=== PATIENT | female | born 1985 | race Caucasian/White ===

== ENCOUNTER 2021-08-10 05:49 | Inpatient (IN) ==
--- NOTE | 2021-08-04 16:07 | Anesthesiology Consultation ---
Date of Service August 04, 2021 Assessment & Plan (1) Encounter for pre-operative examination: Chart Review Chart Review: data entry coordinator initiated Per nursing assessment 08/04/2021, patient admits to local travel only. No known Covid infection in the past 90 days. Patient is vaccinated for Covid. No known Covid positive contacts or Covid related symptoms. Preop Covid testing scheduled 08/08/21= will await results History Surgery Operation Date: 08/10/21 09:05 Proposed Procedures p Primary Section, Possible Bilateral Salpingectomy - Nohelia Botello MD Height/Weight Height: 5 ft 6 in Weight: 88.451 kg Allergies Allergy/AdvReac Type Severity Reaction Status Date / Time lactose Allergy Mild Gastrointestinal Verified 08/04/21 14:59 Upset Medications Home Medications Medication Instructions Recorded Confirmed Last Taken fluoxetine 20 mg tablet 20 mg PO QAM 07/24/21 08/04/21 07/24/21 08:00 lamotrigine 50 mg tablet,extended 50 mg PO HS 07/24/21 08/04/21 07/24/21 18:00 release 24 hr liothyronine 25 mcg tablet 25 mcg PO QAM 07/24/21 08/04/21 07/24/21 08:00 magnesium citrate 100 mg capsule 250 mg PO QDL 07/24/21 08/04/21 07/24/21 12:00 prenat.vits,jose enrique,kqt-etbj-[id number] 1 tab PO QDL 07/24/21 08/04/21 07/24/21 12:00 calcium carbonate 600 mg (1,500 2 tab PO QDL 08/04/21 08/04/21 Unknown mg)-vitamin D3 400 unit tablet (Calcium 600 + D(3)) ferrous sulfate 159 mg 159 mg PO HS 08/04/21 08/04/21 Unknown capsule,extended release hydroxyzine HCl 50 mg tablet 50 mg PO HS 08/04/21 08/04/21 Unknown lorazepam 0.5 mg tablet 0.5 mg PO HS PRN 08/04/21 08/04/21 Unknown omega-3 fatty acids 1,000 mg PO QDL 08/04/21 08/04/21 Unknown Past Medical History Medical History Anemia Bipolar 1 disorder CHELLE (generalized anxiety disorder) Hypothyroidism (spontaneous vaginal delivery) 2019 Past Family History Family History Other No family history of adverse response to anesthesia Past Surgical History Surgical History History of wisdom tooth extraction Social History Smoking Status: Former smoker Do You Dip or Chew Tobacco: No Smoking End Date: quit 7yrs ago Hx Alcohol Use: No (prior to drank a few times a week, none during ) Hx Substance Use: No substance use type: does not use
--- NOTE | 2021-08-09 12:11 | History and Physical Report ---
DATE OF ADMISSION: 08/10/2021 She is to be admitted on 08/10/2021 for primary section. HISTORY OF PRESENT ILLNESS: This is a 36-year-old G2, P1, at 39 weeks and 1 day, due date is 021. The patient is scheduled for section on 08/10/2021 for history of shoulder dystocia. The patient had a shoulder dystocia in last with infant's weight of 9.1 pounds. The patien t had a scan last week and estimated weight was 8 pounds and 13 ounces. Decision has been made therefore to schedule the patient for section. Risks and benefits of section vers us vaginal delivery and the potential for another shoulder dystocia were discussed with the patient. The patient has agreed to undergo section. She also wishes to have permanent sterilization . course has been unremarkable. PAST MEDICAL HISTORY: The patient has history of anxiety, bipolar disorder and hypothyroidism in pre gnancy. PAST SURGICAL HISTORY: The patient has had a history of dental surgery in the past. SOCIAL HISTORY: Denies tobacco, drug or alcohol use. FAMILY HISTORY: Noncontributory. PHYSICAL EXAMINATION: GENERAL: Well-developed, well-nourished white female in no acute distress. VITAL SIGNS: Today in the office, blood pressure is 108/72. HEART: S1 and S2, regular rhythm and rate. LUNGS: Clear to auscultation bilaterally. ABDOMEN: Gravid. heart rate is 130s. PELVIC: Deferred. EXTREMITIES: No cyanosis, clubbing, or significant edema. ASSESSMENT AND PLAN: A 36-year-old 2, para 1, history of shoulder dystocia. Estimated weight last week was 8 pounds and 13 ounces. The patient after counseling has decided to undergo pr imary section to avoid another potential shoulder dystocia. Risks of surgery were discussed with the patient including infection, bleeding, damage to adjacent structures. Consent is signed an d patient will proceed with section. The patient also wishes to have permanent sterilizatio n; this is included in the consent. Job ID: [id number]
[2021-08-10] MEDS ORDERED: LACTATED RINGER'S 1,000 ML IV SCH ×2 (06:15→09:15)
[2021-08-10] MEDS ORDERED: OXYTOCIN 10 UNITS/ML VIAL ONE (07:05)
[2021-08-10] MEDS ORDERED: MoRPHine SULFATE PF 1 MG/ML 10 ML AMP/VIAL ONE (07:05)
[2021-08-10] MEDS ORDERED: ONDANSETRON INJ 2 MG/ML 2 ML VIAL ONE (07:05)
[2021-08-10] MEDS ORDERED: fentaNYL citrate 100 MCG/2 ML VIAL ONE (07:05)
[2021-08-10 07:29] LABS: Basophils # (auto) 0.02 K/uL (0-0.2); Basophils % (auto) 0.2 %; Eosinophils # (auto) 0.14 K/uL (0-0.5); Eosinophils % (auto) 1.3 %; Hematocrit (blood only) 36.5 % (37-47); Hemoglobin 12.6 g/dL (12.0-16.0); Immature Granulocytes # (auto) 0.04 K/uL (0.00-0.02); Immature Granulocytes % (auto) 0.4 %; Lymphocytes % (auto) 27.6 %; Mean Corpuscular Hemoglobin 33.6 pg (25-34); Mean Corpuscular Hgb Conc 34.5 g/dL (32-36); Mean Corpuscular Volume 97.3 fL (80-100); Mean Platelet Volume 10.1 fL (7.4-10.4); Monocytes % (auto) 7.6 %; Neutrophils # (auto) 6.59 K/uL (1.4-6.5); Neutrophils % (auto) 62.9 %; Platelet Count 282 K/uL (130-400); RDW Coefficient of Variation 12.6 % (11.5-14.5); Red Blood Count 3.75 M/uL (4.2-5.4); White Blood Count 10.49 K/uL (4.8-10.8)
[2021-08-10] MEDS ORDERED: LORazepam 0.5 MG TAB PO PRN (07:39)
[2021-08-10] MEDS ORDERED: CITRIC ACID/SODIUM CITRATE 15 ML UDC PO ONE (08:05)
[2021-08-10] MEDS ORDERED: ePHEDrine sulfate 50 MG/ML AMP IV PRN (08:48)
[2021-08-10] MEDS ORDERED: ONDANSETRON INJ 2 MG/ML 2 ML VIAL IV PRN ×2 (08:48→09:14)
[2021-08-10] MEDS ORDERED: MoRPHine SULFATE PF 1 MG/ML 10 ML AMP/VIAL INT SPINAL ONE (08:48)
[2021-08-10] MEDS ORDERED: HYDROmorphone INJ 0.5 MG/0.5 ML SYR IV PRN (08:48)
[2021-08-10] MEDS ORDERED: NALOXONE HCL 0.08 MG in SYRINGE 1.8 ML IV PRN (08:48)
[2021-08-10] MEDS ORDERED: NALOXONE HCL 0.4 MG/1 ML VIAL/CARP IV PRN (08:48)
[2021-08-10] MEDS ORDERED: ACETAMINOPHEN 1000 MG/100 ML IV IV PRN (08:48)
[2021-08-10] MEDS ORDERED: NALBUPHINE HCL INJ 10 MG/ML AMP IV PRN (08:48)
[2021-08-10] MEDS ORDERED: NALOXONE HCL 1 MG in SODIUM CHLORIDE 0.9% 1000ML 1,000 ML IV PRN (08:48)
[2021-08-10] MEDS ORDERED: LACTATED RINGER'S 500 ML IV PRN (08:48)
[2021-08-10] MEDS ORDERED: PHENYLEPHRINE 100MCG/ML 5ML SYR ONE (08:52)
[2021-08-10] MEDS ORDERED: PROMETHAZINE HCL INJ 25 MG/ML 1 ML VIAL ONE (08:53)
[2021-08-10] MEDS ORDERED: NO NARCOTICS OR SEDATIVES SCH (09:00)
[2021-08-10] MEDS ORDERED: SODIUM CHLORIDE 0.9% 1000ML 1,000 ML IV SCH (09:00)
[2021-08-10] MEDS ORDERED: diphenhydrAMINE 50 MG/ML VIAL ONE (09:03)
[2021-08-10] MEDS ORDERED: METHYLERGONOVINE MALEATE 0.2 MG/ML AMP IM STA (09:14)
[2021-08-10] MEDS ORDERED: BENZOCAINE 20% AER SPR 82.5 GM CAN EXT PRN (09:14)
[2021-08-10] MEDS ORDERED: HYDROCORTISONE ACETATE 25 MG SUPP PR PRN (09:14)
[2021-08-10] MEDS ORDERED: MAGNESIUM HYDROXIDE SUSP 30 ML UDC PO PRN (09:14)
[2021-08-10] MEDS ORDERED: SENNA 8.6 MG TAB PO PRN (09:14)
[2021-08-10] MEDS ORDERED: SUPERCREAM 0.870% 15 GM JAR EXT PRN (09:14)
[2021-08-10] MEDS ORDERED: MEASLES, MUMPS & RUBELLA VIRUS VIAL SQ ONE (09:14)
[2021-08-10] MEDS ORDERED: DIPHTHERIA/TETANUS/PERTUSSIS 0.5 ML SYR/VIAL IM ONE (09:14)
--- NOTE | 2021-08-10 09:14 | Post Operative Brief Note ---
Immediate Post Op Note v1 Date of Surgery August 10, 2021 Pre & Post Diagnosis Operation Date: 08/10/21 07:30 Pre-Op Diagnosis: Primary section for history of previous shoulder dystocia Post-Op Diagnosis: same I identified the patient and participated in the time-out.: Yes Procedure Operation Date: 08/10/21 07:30 Actual Procedures p Primary Section, Bilateral Salpingectomy living female child at 0833(Bilateral) - Nohelia Avalos MD Surgeon Nohelia Avalos MD Beer Maker Dr. Dozier Estimated Blood Loss 650 Findings Consistent with Post-Op Diagnosis Drains Gurrola Catheter (gurrola inserted after spinal without difficulty. Gurrola draining clear yellow urine during procedure and anesthesia to monitor output intraoperatively.) Anesthesia Type Spinal Complications none
[2021-08-10] MEDS: FLUoxetine HCL 20 MG CAP PO SCH (10:07)
--- NOTE | 2021-08-10 10:23 | Operative Report (OR) ---
DATE OF SURGERY: 08/10/2021 PREOPERATIVE DIAGNOSES: The patient is a 36-year-old 2, para 1-0-0-1, at 39.2 weeks of gestation with a history of prior shoulder dystocia and suspected macrosomia. Desire for permanent sterilization. POSTOPERATIVE DIAGNOSES: The patient is a 36-year-old 2, para 1-0-0-1, at 39.2 weeks of gestation with a history of prior shoulder dystocia and suspected macrosomia. Desire for permanent sterilization. PROCEDURE: Primary low transverse with Pfannenstiel skin incision and bilateral tubal ligation with [place] method. SURGEON: Nohelia Avalos MD. STRAW HAT BRUSHER: Rusty Dozier MD. ESTIMATED BLOOD LOSS: 650 mL. DRAINS: Brizuela catheter drained 200 mL of clear urine. ANESTHESIA: Spinal. ANESTHESIOLOGIST: Dr. Pacheco. COMPLICATIONS: None. FINDINGS: Baby was a viable female infant, delivered at 08:33 am, Apgars were 9/9, weight was 10 pounds and 4 ounces, 4650 gr. Maternal findings: Normal uterus, fallopian tubes, and ovaries. DESCRIPTION OF PROCEDURE: The patient was taken to the operating room where spinal anesthesia was given without difficulty. The patient was placed in the dorsal supine position with a leftward tilt. She was prepared and draped in the usual sterile fashion. A Pfannenstiel skin incision was made and carried through to the underlying layer of fascia. Fascia was incised in the midline and incision was extended laterally with the help of Mccarthy scissors. Upper aspect of the fascial incision was grasped with 2 Keny clamps, elevated, and underlying rectus muscles were dissected off sharply with Mccarthy scissors and bluntly with fingers. Lower aspect of the fascial incision was then grasped with 2 Keny clamps, elevated, and underlying rectus muscles were dissected off sharply with Mccarthy scissors. Rectus muscles were in the midline. Peritoneum was entered bluntly with fingers. Peritoneal incision was extended superiorly and inferiorly with good visualization of the bladder. Bladder blade was inserted. Vesicouterine peritoneum was identified, grasped with pickups, and entered sharply with Metzenbaum scissors. Bladder flap was created digitally and the bladder blade was reinserted. Lower uterine segment was incised in a transverse fashion. Incision was extended laterally with the help of bandage scissors. Membranes were ruptured. Clear fluid was obtained. Baby's head was delivered without difficulty. Shoulders were delivered with minimal traction. Mouth and nose were suctioned. Cord was clamped x2 and cut. Baby was handed off to the waiting pediatric team. Cord blood was obtained. Placenta was delivered manually as intact and complete. Uterus was exteriorized and cleared of all clots and debris. Fundus was firm. Uterine incision was repaired with 0 Vicryl in a running locked fashion. Second imbricating layer was placed with another 0 Vicryl in a running locked fashion. Excellent hemostasis was achieved. Cul-de-sac was irrigated with warm normal saline and suctioned and then as the patient requested, we proceeded with tubal ligation. Right fallopian tube was grasped with 2 [place] clamps from the avascular site. Mesosalpinx was entered with a 2-0 plain catgut. The tube was tied around the clamps and another tie was placed under the first tie and then about 3 cm length of tube was incised above the tie and sent for pathology. It was hemostatic. Left fallopian tube was grasped with 2 Scarlet clamps from the avascular site. Mesosalpinx was entered with 2-0 plain catgut and then the tube was tied around the clamps, another tie was placed under the first tie and then about 3 cm length of tube was excised above the tie and it was hemostatic. Uterine incision was checked to be hemostatic again. Uterus was returned to the abdomen. Pelvis was irrigated with warm normal saline and suctioned. There was oozing on the right middle of the incision. It was controlled with [id number] stitches x2 with 0 Vicryl. Pelvis was irrigated again and the incision was checked to be hemostatic. Parietal peritoneum was reapproximated with 3-0 Vicryl in a running fashion and the rectus muscles were reapproximated with the same suture in a running fashion, and the rectus muscles and under the fascia were checked to be hemostatic. Rectus fascia was reapproximated with 0 Vicryl starting from both corners, meeting in the midline and then subcuticular fat tissue was brought together with 3-0 Vicryl. Skin was closed with 4-0 Monocryl in a subcuticular fashion. The patient tolerated the procedure well. Sponge, lap, needle count was correct x3. No complications happened. I was present and Dr. Dozier was present during the whole procedure. The patient was taken to labor and delivery in stable condition. She was given cefazolin before surgery. My pier master assistant was needed for retration and visualization and assistance during delivery and completing of surgery. Job ID: [id number] MTDD
[2021-08-10] MEDS ORDERED: Nursing to Pharmacy Communication SCH (10:30)
[2021-08-10] MEDS: KETOROLAC 30 MG/ML VIAL IV PRN ×2 (11:16→17:06)
[2021-08-10] MEDS: OXYTOCIN 20 UNITS in LACTATED RINGER'S 1,000 ML IV SCH ×2 (11:43→19:48)
[2021-08-10] MEDS: PRENATAL VITAMIN 1 TAB PO SCH ×2 (13:36→13:54)
[2021-08-10] MEDS: CALCIUM 600MG + VIT D 400 IU TAB PO SCH ×2 (13:36→17:17)
[2021-08-10] MEDS: SIMETHICONE 80 MG CHEW PO SCH ×3 (13:40→20:44)
[2021-08-10] MEDS: diphenhydrAMINE 50 MG/ML VIAL IV PRN ×2 (15:56→22:06)
--- NOTE | 2021-08-10 16:57 | Anesthesiology Progress Note ---
Date of Service August 10, 2021 Anesthesia Post Procedure Vital Signs Vital Signs: Temp Pulse Resp BP BP Pulse Ox Pulse Ox 08/10/21 16:05 16 100 08/10/21 15:15 16 100 08/10/21 15:05 36.6 C 16 106/66 100 100 08/10/21 14:01 16 99 08/10/21 13:11 16 97 08/10/21 12:00 36.7 C 16 120/70 98 98 08/10/21 11:30 18 99 08/10/21 11:25 69 108/54 L 08/10/21 11:22 76 96 08/10/21 11:17 76 98 08/10/21 11:12 77 98 08/10/21 11:07 72 116/58 L 99 08/10/21 11:02 68 99 08/10/21 10:57 76 98 08/10/21 10:52 77 99 08/10/21 10:47 79 99 08/10/21 10:42 75 97 08/10/21 10:37 74 100 08/10/21 10:36 73 102/58 L 08/10/21 10:32 77 100 08/10/21 10:30 18 99 08/10/21 10:28 75 99/55 L 08/10/21 10:27 73 98 08/10/21 10:22 80 98 08/10/21 10:17 78 99 08/10/21 10:14 68 104/50 L 08/10/21 10:12 85 99 08/10/21 10:07 81 98 08/10/21 10:02 80 100 08/10/21 09:58 81 111/54 L 08/10/21 09:57 75 99 08/10/21 09:52 88 100 08/10/21 09:47 76 99 08/10/21 09:42 88 112/58 L 99 08/10/21 09:37 76 107/56 L 98 08/10/21 09:32 89 108/55 L 98 08/10/21 09:30 18 98 08/10/21 09:27 88 117/59 L 99 08/10/21 07:40 92 H 97 08/10/21 07:35 88 97 08/10/21 07:30 86 98 08/10/21 07:25 93 H 98 08/10/21 07:20 101 H 98 08/10/21 07:15 36.5 C 91 H 20 97 08/10/21 07:10 91 H 97 08/10/21 07:06 99 H 114/74 08/10/21 07:05 92 H 97 08/10/21 07:02 84 92 08/10/21 07:00 90 96 08/10/21 06:55 96 H 97 08/10/21 06:51 89 90 08/10/21 06:50 81 98 08/10/21 06:22 36.9 C 101 H 18 107/69 08/10/21 06:06 101 H 107/69 08/10/21 06:05 36.7 C 18 Transfer of Care Handoff Completed per policy Notes Mental Status: alert / awake / arousable and participated in evaluation Nausea / Vomiting: adequately controlled Pain: adequately controlled Airway Patency, RR, SpO2: stable & adequate BP & HR: stable & adequate Hydration State: stable & adequate Neuraxial Anesthesia: was administered and sensory block is resolving Anesthetic Complications: no major complications apparent and Pt Satisfied with anesthetic care
[2021-08-10] MEDS: DOCUSATE SODIUM 100 MG CAP PO SCH (20:44)
[2021-08-10] MEDS: FERROUS SULFATE 325 MG TAB PO SCH (20:44)
[2021-08-10] MEDS ORDERED: hydrOXYzine HCl 25 MG TAB PO SCH (21:00)
[2021-08-11] MEDS: KETOROLAC 30 MG/ML VIAL IV PRN (00:53)
[2021-08-11] MEDS ORDERED: diphenhydrAMINE Capsule 25 MG CAP PO PRN (03:13)
[2021-08-11] MEDS ORDERED: KETOROLAC 30 MG/ML VIAL IV PRN (03:13)
[2021-08-11] MEDS ORDERED: DC INTRASPINAL MORPHINE SCH (03:13)
[2021-08-11] MEDS ORDERED: diphenhydrAMINE 50 MG/ML VIAL IV PRN (03:13)
[2021-08-11] MEDS ORDERED: PROMETHAZINE HCL 25 MG in SODIUM CHLORIDE 0.9% 50 ML IV PRN (03:13)
[2021-08-11] MEDS ORDERED: MEPERIDINE HCL 50 MG/ML CARP IV PRN (03:13)
[2021-08-11] MEDS: LIOTHYRONINE SODIUM 25 MCG TAB PO SCH ×2 (06:06→07:47)
[2021-08-11] MEDS: oxyCODONE/ACETAMINOPHEN 5mg/325mg TAB PO PRN ×3 (06:21→22:48)
[2021-08-11] MEDS ORDERED: FERROUS SULFATE 325 MG TAB PO SCH (08:00)
[2021-08-11] MEDS ORDERED: PRENATAL VITAMIN 1 TAB PO SCH (08:00)
[2021-08-11 08:11] LABS: Basophils # (auto) 0.03 K/uL (0-0.2); Basophils % (auto) 0.3 %; Eosinophils # (auto) 0.19 K/uL (0-0.5); Eosinophils % (auto) 1.6 %; Hematocrit (blood only) 34.3 % (37-47); Hemoglobin 11.9 g/dL (12.0-16.0); Immature Granulocytes # (auto) 0.04 K/uL (0.00-0.02); Immature Granulocytes % (auto) 0.3 %; Lymphocytes # (auto) 2.12 K/uL (1.2-3.4); Lymphocytes % (auto) 18.1 %; Mean Corpuscular Hemoglobin 33.9 pg (25-34); Mean Corpuscular Hgb Conc 34.7 g/dL (32-36); Mean Corpuscular Volume 97.7 fL (80-100); Mean Platelet Volume 10.4 fL (7.4-10.4); Monocytes # (auto) 1.19 K/uL (0.11-0.59); Monocytes % (auto) 10.2 %; Neutrophils # (auto) 8.15 K/uL (1.4-6.5); Neutrophils % (auto) 69.5 %; Platelet Count 257 K/uL (130-400); RDW Coefficient of Variation 12.5 % (11.5-14.5); RDW Standard Deviation 44.3 fL (36.4-46.3); Red Blood Count 3.51 M/uL (4.2-5.4); White Blood Count 11.72 K/uL (4.8-10.8)
[2021-08-11] MEDS: FLUoxetine HCL 20 MG CAP PO SCH (08:58)
[2021-08-11] MEDS: DOCUSATE SODIUM 100 MG CAP PO SCH ×2 (08:58→20:44)
[2021-08-11] MEDS: SIMETHICONE 80 MG CHEW PO SCH ×4 (08:58→20:44)
[2021-08-11] MEDS: IBUPROFEN 600 MG TAB PO PRN ×4 (09:10→22:49)
--- NOTE | 2021-08-11 10:32 | Obstetrical Progress Note ---
Date of Service August 11, 2021 Assessment & Plan Admission and Anticipated Discharge Date Admission Date: August 10, 2021 Subjective Patient is seen and examined. She feels well, no complaints. Pain is under control with oral meds. Ambulating without dizzines Voiding without difficulty Tolerating regular diet with out N&V Flatus BM NEG Bleeding is minimal No fever/ chills/ CP/ SOB/ N&V/ Leg pain Breast and bottle feeding without problems Vital Signs Temp Pulse Resp BP Pulse Ox 08/11/21 03:20 36.4 C L 72 18 107/72 97 08/11/21 02:00 16 94 08/11/21 01:00 18 96 08/11/21 00:00 16 93 08/10/21 23:00 36.7 C 76 18 99/61 L 96 Lab Results 08/10/21 08/10/21 08/11/21 Range/Units 07:11 07:11 06:54 WBC 10.49 11.72 H (4.8-10.8) K/uL RBC 3.75 L 3.51 L (4.2-5.4) M/uL Hgb 12.6 11.9 L (12.0-16.0) g/dL Hct 36.5 L 34.3 L (37-47) % MCV 97.3 97.7 (80-100) fL MCH 33.6 33.9 (25-34) pg MCHC 34.5 34.7 (32-36) g/dL RDW Std Deviation 45.0 44.3 (36.4-46.3) fL RDW Coeff of Izabela 12.6 12.5 (11.5-14.5) % Plt Count 282 257 (130-400) K/uL MPV 10.1 10.4 (7.4-10.4) fL Immature Gran % (Auto) 0.4 0.3 % Neut % (Auto) 62.9 69.5 % Lymph % (Auto) 27.6 18.1 % [place] % (Auto) 7.6 10.2 % Eos % (Auto) 1.3 1.6 % Baso % (Auto) 0.2 0.3 % Neut # (Auto) 6.59 H 8.15 H (1.4-6.5) K/uL Lymph # (Auto) 2.90 2.12 (1.2-3.4) K/uL [place] # (Auto) 0.80 H 1.19 H (0.11-0.59) K/uL Eos # (Auto) 0.14 0.19 (0-0.5) K/uL Baso # (Auto) 0.02 0.03 (0-0.2) K/uL Immature Gran # (Auto) 0.04 H 0.04 H (0.00-0.02) K/uL Blood Type AB Positive Antibody Screen NEGATIVE PE: General: Alert, orientedx3, NAD CVS: S1S2 RRR Lungs; CTAB Abd: soft, NT, ND, BS+, fundus firm, below Umbilicus Incision: Clean, dry, intact Perineum intact, Lochia rubra minimal Ext; NT, no edema AP: 36 yo s/p C Section, pod# 1 VSS Afebrile doing well Continue routine postop care Encourage ambulation, PO intake All questions were answered Anticipate D/C home tomorrow Results & Data ([facility]) Vital Signs (Past 12 Hours) Vital Signs Temp Pulse Resp BP Pulse Ox 08/11/21 03:20 36.4 C L 72 18 107/72 97 08/11/21 02:00 16 94 08/11/21 01:00 18 96 08/11/21 00:00 16 93 08/10/21 23:00 36.7 C 76 18 99/61 L 96
[2021-08-11] MEDS: PRENATAL VITAMIN 1 TAB PO SCH (12:33)
[2021-08-11] MEDS: CALCIUM 600MG + VIT D 400 IU TAB PO SCH (12:33)
[2021-08-11] MEDS: MAGNESIUM CITRATE PO SCH (12:34)
[2021-08-11] MEDS ORDERED: bisacodyL 5 MG TABEC PO SCH (20:00)
[2021-08-11] MEDS: FERROUS SULFATE 325 MG TAB PO SCH (20:44)
[2021-08-12] MEDS: IBUPROFEN 600 MG TAB PO PRN ×2 (04:39→08:45)
[2021-08-12] MEDS: oxyCODONE/ACETAMINOPHEN 5mg/325mg TAB PO PRN ×2 (04:40→08:36)
[2021-08-12] MEDS: LIOTHYRONINE SODIUM 25 MCG TAB PO SCH (06:18)
[2021-08-12 06:32] LABS: Hematocrit (blood only) 34.7 % (37-47); Hemoglobin 11.8 g/dL (12.0-16.0)
--- NOTE | 2021-08-12 08:12 | Obstetrical Progress Note ---
Date of Service August 12, 2021 Assessment & Plan (1) Normal course: Continue routine PP care Anticipate d/c home today of baby is discharged. Otherwise d/c home tomorrow. Subjective Ambulation: ambulating normally Voiding: no voiding problems Passing Gas:: Yes Diet Tolerance:: regular diet Lochia:: Small Feeding Type:: breast feeding Current Pain Level(1-10): 1 Doing well, pain well controlled on PO meds. No complaints at this time Review of Systems All systems reviewed & are unremarkable except as noted in HPI & below Physical Exam Constitutional WD/WN, vitals as above Respiratory normal respiratory effort, lungs clear to auscultation Cardiovascular RRR, no murmur, no edema Gastrointestinal (Abdomen) normal bowel sounds, soft, nontender, no hepatosplenomegaly Incision clean dry and intact. Steristrips in place Results & Data ([facility]) Vital Signs (Past 12 Hours) Vital Signs Temp Pulse Resp BP Pulse Ox 08/11/21 23:00 36.4 C L 66 16 104/68 97 08/11/21 20:35 36.7 C 81 17 109/66 97 Laboratory Results H/H 11.8/34.7% stable
[2021-08-12] MEDS: SIMETHICONE 80 MG CHEW PO SCH (08:35)
[2021-08-12] MEDS: DOCUSATE SODIUM 100 MG CAP PO SCH (08:35)
[2021-08-12] MEDS: FLUoxetine HCL 20 MG CAP PO SCH (08:36)
[2021-08-12] MEDS ORDERED: bisacodyL 10 MG SUPP PR PRN (09:14)
[2021-08-12] MEDS: MAGNESIUM CITRATE PO SCH (12:02)
[2021-08-12] MEDS: PRENATAL VITAMIN 1 TAB PO SCH (12:02)
[2021-08-12] MEDS: CALCIUM 600MG + VIT D 400 IU TAB PO SCH (12:03)
--- NOTE | 2021-08-18 13:58 | Discharge Summary (DS) ---
DATE OF DISCHARGE: 08/12/2021. DETAILS OF ADMISSION: The patient is a 36-year-old, -0-0-1, at 39 weeks and 2 days of gestation with history of prior shoulder dystocia and suspected macrosomia and desire for permanent sterilizat ion. She was admitted on 08/10/2021 for scheduled primary and tubal ligation. Her surgery went uncomplicated. She delivered a viable female at 08:33 a.m. Apgars were 9/9. The baby' s weight was 10 pounds 4 ounces. See dictated op note for details. On postop period, the patient wa s doing well, vital signs stable, afebrile. Urine output was adequate. On postop day #1, the patien t was ambulating without dizziness, tolerating regular diet, passing gas. Her H and H was 11.9/34.3. Her incision was clean, dry, and intact. Abdomen was soft and nontender. On postoperative day #2, the patient was doing well, vital signs stable, afebrile, passing gas, tolerating regular diet. Jacquelyn n was under control with medications. Her H and H was stable and her physical exam was unremarkable. The patient desired to go home on postoperative day #2. Discharge instructions were given. Prescr iptions were written for pain. She is to be seen in the office in a week. Job ID: [id number]
== END 2021-08-12 12:40 | disposition home or self-care (01) | DRG 785 ==
LOC: 4S1 05:49 → EDSTATUS 09:05 → 4S2 12:25
DX: Z30.2 Encounter for sterilization; F31.9 Bipolar disorder, unspecified; E03.9 Hypothyroidism, unspecified; O99.344 Other mental disorders complicating childbirth; O36.63X0 Maternal care for excessive fetal growth, third trimester, not applicable or unspecified; O99.03 Anemia complicating the puerperium; O99.284 Endocrine, nutritional and metabolic diseases complicating childbirth; Z3A.39 39 weeks gestation of pregnancy; Z91.018 Allergy to other foods; Z79.899 Other long term (current) drug therapy; Z87.891 Personal history of nicotine dependence; O26.893 Other specified pregnancy related conditions, third trimester; O09.893 Supervision of other high risk pregnancies, third trimester; F41.1 Generalized anxiety disorder; Z37.0 Single live birth

== ENCOUNTER 2024-06-28 20:35 | Inpatient (IN) ==
[2024-06-28 21:41] LABS: Basophils # (auto) 0.06 K/uL (0.00-0.20); Basophils % (auto) 0.9 %; Eosinophils # (auto) 0.12 K/uL (0.00-0.50); Eosinophils % (auto) 1.9 %; Hematocrit (blood only) 37.1 % (37.0-47.0); Hemoglobin 12.9 g/dl (12.0-16.0); Immature Granulocytes # (auto) 0.01 K/uL (0.01-0.20); Immature Granulocytes % (auto) 0.2 %; Lymphocytes % (auto) 34.2 %; Mean Corpuscular Hemoglobin 32.6 pg (25.0-34.0); Mean Corpuscular Hgb Conc 34.8 g/dL (32.0-36.0); Mean Corpuscular Volume 93.7 fL (80.0-100.0); Mean Platelet Volume 10.5 fL (9.4-12.4); Monocytes # (auto) 0.38 K/uL (0.11-0.59); Monocytes % (auto) 5.9 %; Neutrophils # (auto) 3.67 K/uL (1.40-6.50); Neutrophils % (auto) 56.9 %; Platelet Count 303 K/uL (130-400); RDW Coefficient of Variation 11.4 % (11.5-14.5); RDW Standard Deviation 38.8 fL (36.4-46.3); Red Blood Count 3.96 M/uL (4.20-5.40); White Blood Count 6.44 K/ul (4.8-10.8)
--- NOTE | 2024-06-28 21:43 | Emergency Department Note ---
Impression & Plan Suicidal ideation ED Provider Note HISTORY OF PRESENT ILLNESS: Patient is a 39-year-old female presenting with suicidal ideations. Patient reports that "I am having some intrusive thoughts." She reports these thoughts have been ongoing for the last few months, but worse in the last week or so. She follows with an outpatient provider to an independent practice. She reports that she has been off of her prazosin for 1 week. Patient reports that she is not hearing any auditory visual hallucinations. She reports that the intrusive thoughts are her own voice questioning whether she should just kill herself." She reports she has been inpatient for psychiatric admission, but has not been since 2019. She reports she has been doing well with outpatient providers. She denies any homicidal ideation. She reports that tonight the intrusive thoughts became more overwhelming and more insistent about ending her life, prompting her to present to the emergency department. ROS: as above PHYSICAL EXAM: Constitutional: Patient appears in no acute distress. HENT: Head: Normocephalic and atraumatic. Eyes: EOMI, PERRL Mouth/Throat: Mucous membranes moist. Neck: Trachea midline. Neck supple. Musculoskeletal: No edema, tenderness or deformity noted. Skin: Warm and dry. No rash, erythema, pallor or cyanosis Psychiatric: Appropriate mood and affect for situation. Neurological: Alert and keenly responsive. CN II-XII grossly intact, moving all extremities equally and fully. MDM: - Vitals signs stable - History obtained via patient. History as above. - Chronic conditions affecting care: anxiety; bipolar 1 disorder - Differential diagnoses include, but are not limited to: depression; UTI; alcohol intoxication; drug intoxication - External medical records reviewed. - Laboratory workup interpreted by myself showed normal WBC; slight hypokalemia (K 3.1); normal TSH; negative hCG; negative salicylate/acetaminophen levels; slightly elevated alcohol (11.6) - UA negative for infection - UDS negative - COVID negative - Patient medically cleared. Patient was seen in conjunction with behavior health director of casework. She voluntarily signed herself and is a 201 for inpatient psychiatric admission. She was referred to the [facility] inpatient psychiatric unit, [address] [place] [address], who accepted her. - Patient admitted to [facility], [address] [place] [address], for further evaluation and management. ASSESSMENT AND PLAN: Diagnosis: suicidal ideation Plan: admit to [address] [place] [address] Past Med/Surg History Problem List (Updated 06/29/24 @ 01:01 by Billie Hendrickson MD) Suicidal ideation (Acute) Normal course Medical History delivery delivered (spontaneous vaginal delivery) 2019 Anemia CHELLE (generalized anxiety disorder) Bipolar 1 disorder Hypothyroidism Surgical History History of wisdom tooth extraction Family History Other No family history of adverse response to anesthesia Social History Smoking Status: Never smoker Second Hand Exposure: No; Do You Dip or Chew Tobacco: No; Hx Alcohol Use: No (prior to drank a few times a week, none during ) Hx Substance Use: No Preferred Language: Latvian Communication Ability: Effective Paint Grinder Required: No Beliefs That Will Affect Care: None marital status: Current Living Situation: Spouse and Family Current Living Situation Comment: Lives with and daughter Feels Safe at Home: Yes Gender Identity: Female Assistive Devices: Glasses Allergies Allergies Allergy/AdvReac Type Severity Reaction Status Date / Time lactose Allergy Mild Gastrointestinal Verified 12/27/22 08:34 Upset Home Meds Home Medications Medication Instructions Recorded Confirmed fluoxetine 20 mg tablet 20 mg PO QAM 07/24/21 06/28/24 lamotrigine 50 mg tablet,extended 125 mg PO BID 07/24/21 06/28/24 release 24 hr multivitamin 1 tab PO DAILY 12/27/22 06/28/24 clonazepam 0.25 mg disintegrating 0.25 mg PO HS PRN Sleep 06/28/24 06/28/24 tablet levothyroxine 50 mcg tablet 50 mcg PO QAM 06/28/24 06/28/24 prazosin 1 mg capsule 1 mg PO QAM 06/28/24 06/28/24 Results & Data (ED) Vital Signs Vital Signs - 24 hr 06/28/24 20:46 06/28/24 22:34 Temperature 37 C 36.6 C Temperature Source Temporal Artery Scan Oral Pulse Rate 73 Pulse Rate [Apical] 58 L Pulse Rhythm Regular Pulse Rhythm [Apical] Regular Pulse Strength Normal Pulse Strength [Apical] Normal Respiratory Rate 16 20 Respiratory Effort / Characteristics Non-Labored Spontaneous Non-Labored Respiratory Depth Normal Normal Respiratory Pattern Regular Regular Blood Pressure 135/86 Blood Pressure [Left Arm] 114/70 Blood Pressure Mean 102 Blood Pressure Mean [Left Arm] 84 Blood Pressure Position Sitting Blood Pressure Position [Left Arm] Lying Pulse Oximetry 99 99 Oxygen Delivery Method Room Air Room Air Sepsis Recent Fever Within 48 Hours No Sepsis New/Unexplained Change in Mental Status N/A Sepsis Action Taken by Nursing No Action Required Laboratory Data 06/28/24 21:00 06/28/24 21:00 Lab Results 06/28/24 06/28/24 06/28/24 Range/Units 21:00 21:02 22:02 WBC 6.44 (4.8-10.8) K/ul RBC 3.96 L (4.20-5.40) M/uL Hgb 12.9 (12.0-16.0) g/dl Hct 37.1 (37.0-47.0) % MCV 93.7 (80.0-100.0) fL MCH 32.6 (25.0-34.0) pg MCHC 34.8 (32.0-36.0) g/dL RDW Std Deviation 38.8 (36.4-46.3) fL RDW Coeff of Izabela 11.4 L (11.5-14.5) % Plt Count 303 (130-400) K/uL MPV 10.5 (9.4-12.4) fL Immature Gran % (Auto) 0.2 % Neut % (Auto) 56.9 % Lymph % (Auto) 34.2 % [place] % (Auto) 5.9 % Eos % (Auto) 1.9 % Baso % (Auto) 0.9 % Neut # (Auto) 3.67 (1.40-6.50) K/uL Lymph # (Auto) 2.20 (1.20-3.40) K/uL [place] # (Auto) 0.38 (0.11-0.59) K/uL Eos # (Auto) 0.12 (0.00-0.50) K/uL Baso # (Auto) 0.06 (0.00-0.20) K/uL Immature Gran # (Auto) 0.01 (0.01-0.20) K/uL Sodium 139 (136-145) mmol/L Potassium 3.1 L (3.5-5.1) mmol/L Chloride 103 (98-107) mmol/L Carbon Dioxide 31 (21-32) mmol/L Anion Gap 5 (3-11) BUN 8 (6-23) mg/dl Creatinine 0.89 (0.6-1.2) mg/dl Est Cr Clr Drug Dosing 70.3 ml/min Est GFR ( Amer) 94.6 ml/min Est GFR (Non-Af Amer) 81.6 ml/min BUN/Creatinine Ratio 9.0 L (10-20) Glucose 124 H (70-99(Fasting)) mg/dl Calcium 9.8 (8.6-10.3) mg/dl Total Bilirubin 0.4 (0.2-1.0) mg/dl AST 17 (13-39) U/L ALT 11 (7-52) U/L Alkaline Phosphatase 65 (34-104) U/L Total Protein 8.0 (6.0-8.3) gm/dl Albumin 5.1 H (3.4-5.0) gm/dl Globulin 2.9 (2.5-4.0) gm/dl Albumin/Globulin Ratio 1.8 (0.9-2) TSH 2.481 (0.300-4.500) uIu/ml HCG, Qual Negative (Negative) Urine Color Yellow Urine Appearance Clear (Clear) Urine pH >= 9.0 H (4.5-7.5) Ur Specific [place] 1.011 (1.000-1.030) Urine Protein Negative (Negative) Urine Glucose (UA) Negative (Negative) Urine Ketones Negative (Negative) Urine Blood Negative (Negative) Urine Nitrite Negative (Negative) Urine Bilirubin Negative (Negative) Urine Urobilinogen Negative (Negative) Ur Leukocyte Esterase Negative (Negative) POC Ur Test (NEG) Salicylates < 3.0 L (3.0-30) mg/dl Urine Opiates Screen Neg (Neg) Ur Methadone, Qual Neg (Neg) Urine Fentanyl Screen Neg (Neg) Acetaminophen < 3 L (10-30) ug/ml Urine Barbiturates Neg (Neg) Ur Phencyclidine (PCP) Neg (Neg) U Amphetamin/Meth Scrn Neg (Neg) MDMA (Ecstasy) Screen Neg (Neg) U Benzodiazepines Scrn Neg (Neg) Ur Cocaine Metabolite Neg (Neg) U Marijuana (THC) Screen Neg (Neg) Ethyl Alcohol mg/dL 11.6 H (<10.0) mg/dl SARS-CoV-2, RNA, NAAT NEGATIVE (NEGATIVE) 06/28/24 Range/Units Unknown WBC (4.8-10.8) K/ul RBC (4.20-5.40) M/uL Hgb (12.0-16.0) g/dl Hct (37.0-47.0) % MCV (80.0-100.0) fL MCH (25.0-34.0) pg MCHC (32.0-36.0) g/dL RDW Std Deviation (36.4-46.3) fL RDW Coeff of Izabela (11.5-14.5) % Plt Count (130-400) K/uL MPV (9.4-12.4) fL Immature Gran % (Auto) % Neut % (Auto) % Lymph % (Auto) % [place] % (Auto) % Eos % (Auto) % Baso % (Auto) % Neut # (Auto) (1.40-6.50) K/uL Lymph # (Auto) (1.20-3.40) K/uL [place] # (Auto) (0.11-0.59) K/uL Eos # (Auto) (0.00-0.50) K/uL Baso # (Auto) (0.00-0.20) K/uL Immature Gran # (Auto) (0.01-0.20) K/uL Sodium (136-145) mmol/L Potassium (3.5-5.1) mmol/L Chloride (98-107) mmol/L Carbon Dioxide (21-32) mmol/L Anion Gap (3-11) BUN (6-23) mg/dl Creatinine (0.6-1.2) mg/dl Est Cr Clr Drug Dosing ml/min Est GFR ( Amer) ml/min Est GFR (Non-Af Amer) ml/min BUN/Creatinine Ratio (10-20) Glucose (70-99(Fasting)) mg/dl Calcium (8.6-10.3) mg/dl Total Bilirubin (0.2-1.0) mg/dl AST (13-39) U/L ALT (7-52) U/L Alkaline Phosphatase (34-104) U/L Total Protein (6.0-8.3) gm/dl Albumin (3.4-5.0) gm/dl Globulin (2.5-4.0) gm/dl Albumin/Globulin Ratio (0.9-2) TSH (0.300-4.500) uIu/ml HCG, Qual (Negative) Urine Color Urine Appearance (Clear) Urine pH (4.5-7.5) Ur Specific [place] (1.000-1.030) Urine Protein (Negative) Urine Glucose (UA) (Negative) Urine Ketones (Negative) Urine Blood (Negative) Urine Nitrite (Negative) Urine Bilirubin (Negative) Urine Urobilinogen (Negative) Ur Leukocyte Esterase (Negative) POC Ur Test NEG (NEG) Salicylates (3.0-30) mg/dl Urine Opiates Screen (Neg) Ur Methadone, Qual (Neg) Urine Fentanyl Screen (Neg) Acetaminophen (10-30) ug/ml Urine Barbiturates (Neg) Ur Phencyclidine (PCP) (Neg) U Amphetamin/Meth Scrn (Neg) MDMA (Ecstasy) Screen (Neg) U Benzodiazepines Scrn (Neg) Ur Cocaine Metabolite (Neg) U Marijuana (THC) Screen (Neg) Ethyl Alcohol mg/dL (<10.0) mg/dl SARS-CoV-2, RNA, NAAT (NEGATIVE) Discharge Plan Visit Data Chief Complaint: Mental Health Evaluation Stated Complaint: [facility] ED Provider: Billie Hendrickson Discharge Problem: Suicidal ideation Forms Stand Alone Forms: [facility], Suicide Prevention Resources Prescriptions Prescriptions: No Action fluoxetine 20 mg Tablet 20 mg PO QAM lamotrigine 50 mg Tablet Extended Release 24hr 125 mg PO BID multivitamin [Multi-Daily] Tablet 1 tab PO DAILY levothyroxine 50 mcg tablet 50 mcg PO QAM clonazepam 0.25 mg tablet,disintegrating 0.25 mg PO HS PRN (Reason: Sleep) prazosin 1 mg capsule 1 mg PO QAM Referrals Referrals: Ness Maher MD [Primary Care Provider] -
[2024-06-28 21:44] LABS: Pregnancy Test, Serum Negative (Negative)
[2024-06-28 21:52] LABS: Albumin Globulin Ratio 1.8 (0.9-2); Albumin Level 5.1 gm/dl (3.4-5.0); Bilirubin,Total 0.4 mg/dl (0.2-1.0); Calcium 9.8 mg/dl (8.6-10.3); Creatinine Clr Calc Pharmacy 70.3 ml/min; Est GFR (African American) 94.6 ml/min; Est GFR (Non-African American) 81.6 ml/min; Globulin 2.9 gm/dl (2.5-4.0); Potassium 3.1 mmol/L (3.5-5.1)
[2024-06-28 21:54] LABS: Acetaminophen < 3 ug/ml (10-30); Salicylate < 3.0 mg/dl (3.0-30)
[2024-06-28 22:06] LABS: Thyroid Stimulating Hormone 2.481 uIu/ml (0.300-4.500)
[2024-06-28 22:18] LABS: Appearance Urine Clear (Clear); Bilirubin Urine Negative (Negative); Blood Urine Negative (Negative); Color Urine Yellow; Glucose Urine UA Negative (Negative); Ketones Urine Negative (Negative); Leukocyte Esterase Urine Negative (Negative); Nitrite Urine Negative (Negative); Protein Urine Negative (Negative); Specific Gravity Urine 1.011 (1.000-1.030); Urobilinogen Urine Negative (Negative); pH Urine >= 9.0 (4.5-7.5)
[2024-06-28 22:50] LABS: Amphetamines+Metham, Urine Neg (Neg); Barbiturates, Urine Neg (Neg); Benzodiazepine, Urine Neg (Neg); Cocaine, Urine Neg (Neg); Fentanyl, Urine Neg (Neg); MDMA (Ecstacy), Urine Neg (Neg); Marijuana, Urine Neg (Neg); Methadone, Urine Neg (Neg); Opiate, Urine Neg (Neg); Phencyclidine, Urine Neg (Neg)
[2024-06-29] MEDS ORDERED: BISMUTH SUBSALICYLATE LIQD 236 ML PO PRN (03:40)
[2024-06-29] MEDS ORDERED: ACETAMINOPHEN 325 MG TAB PO PRN (03:40)
[2024-06-29] MEDS ORDERED: SODIUM CHLORIDE 0.65% NA SOLN 45 ML (OCEAN) PRN (03:40)
[2024-06-29] MEDS ORDERED: ALUMINUM/MAGNESIUM SUSP 30 ML UDC PO PRN (03:40)
[2024-06-29] MEDS ORDERED: clonazePAM 0.5 MG TAB PO PRN (04:13)
[2024-06-29] MEDS: hydrOXYzine HCl 25 MG TAB PO PRN (04:37)
[2024-06-29] MEDS: FLUoxetine HCL 20 MG CAP PO SCH (08:10)
[2024-06-29] MEDS: LEVOTHYROXINE SODIUM 50 MCG TABLET PO SCH (08:11)
[2024-06-29] MEDS: lamoTRIgine 25 MG TAB PO SCH (08:11)
[2024-06-29] MEDS: POTASSIUM CHLORIDE CRTAB 20 MEQ TABCR PO ONE (16:13)
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
[2024-06-29] MEDS: PRAZOSIN HCL 1 MG CAP PO SCH (21:03)
[2024-06-29] MEDS: LORazepam 1 MG TAB PO SCH (21:03)
[2024-06-30 06:39] VITALS: RESP 16
[2024-06-30] MEDS: FLUoxetine HCL 10 MG CAP PO SCH (07:51)
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
[2024-06-30] MEDS: ARIPiprazole 5 MG TAB PO SCH (21:21)
[2024-06-30] MEDS: LORazepam 0.5 MG TAB PO SCH (21:21)
[2024-07-01] MEDS: FLUoxetine HCL 20 MG CAP PO SCH (08:50)
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
[2024-07-01] MEDS: DOCUSATE SODIUM 100 MG CAP PO SCH (20:50)
[2024-07-02 08:13] LABS: Estimated Average Glucose 103 mg/dl; Hemoglobin A1C 5.2 % (4.5-5.6)
[2024-07-02 08:24] LABS: Chol HDL Ratio 3.1 (0-5)
[2024-07-02] MEDS ORDERED: POLYETHYLENE (MIRALAX) 17 GM PACK PO PRN (14:28)
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
[2024-07-02] MEDS: LORazepam 1 MG TAB PO SCH (21:50)
[2024-07-03] MEDS: PSYLLIUM or GUAR GUM FIBER 4GM PACKET PO SCH (08:54)
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
[2024-07-03] MEDS: LORazepam 0.5 MG TAB PO SCH (21:17)
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
[2024-07-04] MEDS ORDERED: LORazepam 0.5 MG TAB PO PRN (11:35)
[2024-07-04] MEDS: PRAZOSIN HCL 1 MG CAP PO SCH (21:00)
[2024-07-05 06:45] VITALS: O2SAT 98
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
[2024-07-05] MEDS: hydrOXYzine HCl 25 MG TAB PO PRN (21:48)
[2024-07-05] MEDS ORDERED: cloNIDine HCL 0.1 MG TAB PO SCH (22:00)
[2024-07-06 06:44] VITALS: TEMP 97.1
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
[2024-07-06 10:56] VITALS: BP 109/65; PULSE 58
[2024-07-06] MEDS: MAGNESIUM HYDROXIDE SUSP 30 ML UDC PO PRN (13:18)
[2024-07-06] MEDS ORDERED: cloNIDine HCL 0.1 MG TAB PO SCH (22:00)
== END 2024-07-06 14:56 | disposition home or self-care (01) | DRG 885 ==
LOC: ED 20:35 → 3S 06-29 03:12 → SUATTDRO 06-29 03:12 → 3S 06-29 03:24